=== PATIENT | female | born 1970 | race Caucasian/White ===

== ENCOUNTER 2021-07-29 20:14 | Emergency (ER) | payer OTHER ==
[~2021-07-29] VITALS: Ht 157.5 cm; Wt 67.7 kg
[2021-07-29] MEDS ORDERED: TraMADol HCL 50 MG TABLET PO ONE (23:00)
[2021-07-30] MEDS ORDERED: CYCL10TA17 PO (01:54)
[2021-07-30] MEDS ORDERED: IBUP-2070 PO (01:54)
[2021-07-30 02:04] VITALS: BP 131/83
== END 2021-07-30 02:06 | disposition home or self-care (01) ==
LOC: EMS 20:17
DX: M54.50 Low back pain, unspecified (principal); M25.551 Pain in right hip; V06.90XA Pedestrian on foot injured in collision with other nonmotor vehicle, unspecified whether traffic or nontraffic accident, initial encounter; Y93.89 Activity, other specified; Y92.89 Other specified places as the place of occurrence of the external cause; Y99.8 Other external cause status
CPT/HCPCS: 72100; 73502; 99284